=== PATIENT | female | born 1970 | race Caucasian/White ===

== ENCOUNTER 2016-04-20 12:14 | Emergency (ER) | payer OTHER ==
[~2016-04-20] VITALS: Ht 165.1 cm; Wt 101.2 kg
--- NOTE | 2016-04-20 15:15 | Emergency Room Report ---
History of Present Illness Time Seen by [id number] Presenting Problem in Triage Pt arrived:Walked Presenting Problem:PATIENT REPORTS HER BACK STARTED HURTING AFTER PACKING TAPE AT 3M. 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 N Clinical Suspician of Infection? N Mental Status: 1 - Regular (Normal Baseline) Sepsis Risk:Low Sepsis Risk Have you (or family members/close friends) recently traveled outside the [place]? N If Yes, where/when: Have you had exposure to infectious disease within the past month? N TB? Other? 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 She reported packaging boxes, and leaned over where her back "catched" and wouldn't loosen up. She reported having similar LBP 2yrs ago, but at that time was more transverse on both sides. She has taken x2 "advil liquid gels" today with no improvement. She denies fever, chills, n/v/d, numbness/tingling to extremities, or loss of bowel/bladder control. Cardiac Chest Pain Chest pain indicative of cardiac No ALLERGIES Coded Allergies: aspirin (04/20/16) History Medical History General CAD? No Angina: No SD: No Hypertension? No Hyperlipidemia? No CHF? No DVT? No PE? No COPD? No Asthma? No Anemia? No GERD? No Gastric ulcers? No GI Bleed? No Hernia? No Thyroid Problems? No Hypothyroidism? No CVA? No Seizures? No Diabetes? No Renal Insuffiency? No End Stage Renal Disease? No UTI? No Stones? No GB Disease: No Nephritic Syndrome? No Asplenia? No Hepatitis? No Sickle Cell Disease? No Arthritis? No Migraines? No Cataracts? No Glaucoma? No MRSA? No HIV? No TB? No Anxiety? No Depression? Yes Cancer? No More? 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 Musculoskeletal see HPI Skin no symptoms reported, change in color Psychiatric/Neurological see HPI, denies headache, denies numbness, denies paresthesia, denies tingling, denies weakness Physical Exam Vital Signs Vital Signs Date Time Temp Pulse Resp B/P Pulse O2 O2 Flow FiO2 Ox Delivery Rate 04/20 1530 89 16 145/79 97 04/20 1437 98.1 82 16 142/78 97 04/20 1347 72 16 126/74 97 04/20 1321 98.1 79 16 140/74 98 General Appearance normal appearance, WD/WN, mild distress Respiratory Status Yes: trachea midline, chest symmetrical, non tender chest. No: respiratory distress. Lung Sounds bilateral: normal breath sounds, lungs clear. Cardiovascular normal exam, regular rate/rhythm, no peripheral edema, no gallop, no JVD, no murmur, no rub, normal peripheral pulses Peripheral Pulses Pulses normal Yes Gastrointestinal normal bowel sounds, normal exam, non tender, soft, no organomegaly Back normal inspection, decreased range of motion, muscle spasm, right sacral paravertebral muscle tenderness with palpation. Pain and guarding illicited with foward flexion>extension. Pain illicited with upper torso bending to left, and pain felt to her right lower back. Extremities pain to right lower back. 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 No Results/Orders Patient instructed to follow-up with her family physician take the medications prescribed as instructed, at this time. Departure Departure Time of Disposition 1520 Disposition DC Home or Self Care(routine) Clinical Impression Primary Impression: Lumbar strain Qualifiers: Encounter type: initial encounter Qualified Code: S39.012A - Strain of muscle, fascia and tendon of lower back, initial encounter Condition STABLE Patient Instructions DI for Low Back Pain Additional Instructions Please take the medications prescribed as instructed, follow-up with your family physician if no better in 3 days. Work excuse provided for 2 days. Discharge Counseling Counseled pt/family regarding diagnosis, test results, medications/RX, home care, follow up needs Comment Please take the medications prescribed as instructed, follow-up with your family physician if no better in 3 days. Work excuse provided for 2 days. Prescriptions Current Visit Scripts Etodolac 400 MG PO QIDP PRN pain #28 TAB Cyclobenzaprine Hcl (Flexeril) 10 MG PO TID PRN pain #30 TAB ED Critical Care Critical Care No at 2806
--- NOTE | 2016-04-20 15:15 | Emergency Room Report ---
History of Present Illness Time Seen by [id number] Presenting Problem in Triage Pt arrived:Walked Presenting Problem:PATIENT REPORTS HER BACK STARTED HURTING AFTER PACKING TAPE AT 3M. 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 N Clinical Suspician of Infection? N Mental Status: 1 - Regular (Normal Baseline) Sepsis Risk:Low Sepsis Risk Have you (or family members/close friends) recently traveled outside the [place]? N If Yes, where/when: Have you had exposure to infectious disease within the past month? N TB? Other? 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 She reported packaging boxes, and leaned over where her back "catched" and wouldn't loosen up. She reported having similar LBP 2yrs ago, but at that time was more transverse on both sides. She has taken x2 "advil liquid gels" today with no improvement. She denies fever, chills, n/v/d, numbness/tingling to extremities, or loss of bowel/bladder control. Cardiac Chest Pain Chest pain indicative of cardiac No ALLERGIES Coded Allergies: aspirin (04/20/16) History Medical History General CAD? No Angina: No GA: No Hypertension? No Hyperlipidemia? No CHF? No DVT? No PE? No COPD? No Asthma? No Anemia? No GERD? No Gastric ulcers? No GI Bleed? No Hernia? No Thyroid Problems? No Hypothyroidism? No CVA? No Seizures? No Diabetes? No Renal Insuffiency? No End Stage Renal Disease? No UTI? No Stones? No GB Disease: No Nephritic Syndrome? No Asplenia? No Hepatitis? No Sickle Cell Disease? No Arthritis? No Migraines? No Cataracts? No Glaucoma? No MRSA? No HIV? No TB? No Anxiety? No Depression? Yes Cancer? No More? No Immunization Hx Ped.Immunizations UTD Yes DT/Tetanus 5-10 Years Ago Surgical Hx Previous Surgery?Y Tonsils And/Or Adenoids DX [facility] Hx LMP 3 Weeks Ago Social History Smoking Hx Smoker: Current Every Day Smoker Tobacco: Yes Type Cigarettes Packs/day < 1 Pack Are you/the child exposed to second-hand smoke: No Alcohol Alcohol: No Review of Systems All Other Systems Reviewed and Negative Constitutional see HPI Respiratory denies shortness of breath, denies wheezing Cardiovascular denies no symptoms reported Gastrointestinal denies no symptoms reported, see HPI Genitourinary see HPI. Musculoskeletal see HPI Skin no symptoms reported, change in color Psychiatric/Neurological see HPI, denies headache, denies numbness, denies paresthesia, denies tingling, denies weakness Physical Exam Vital Signs Vital Signs Date Time Temp Pulse Resp B/P Pulse O2 O2 Flow FiO2 Ox Delivery Rate 04/20 1530 89 16 145/79 97 04/20 1437 98.1 82 16 142/78 97 04/20 1347 72 16 126/74 97 04/20 1321 98.1 79 16 140/74 98 General Appearance normal appearance, WD/WN, mild distress Respiratory Status Yes: trachea midline, chest symmetrical, non tender chest. No: respiratory distress. Lung Sounds bilateral: normal breath sounds, lungs clear. Cardiovascular normal exam, regular rate/rhythm, no peripheral edema, no gallop, no JVD, no murmur, no rub, normal peripheral pulses Peripheral Pulses Pulses normal Yes Gastrointestinal normal bowel sounds, normal exam, non tender, soft, no organomegaly Back normal inspection, decreased range of motion, muscle spasm, right sacral paravertebral muscle tenderness with palpation. Pain and guarding illicited with foward flexion>extension. Pain illicited with upper torso bending to left, and pain felt to her right lower back. Extremities pain to right lower back. 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 No Results/Orders Patient instructed to follow-up with her family physician take the medications prescribed as instructed, at this time. Departure Departure Time of Disposition 1520 Disposition DC Home or Self Care(routine) Clinical Impression Primary Impression: Lumbar strain Qualifiers: Encounter type: initial encounter Qualified Code: S39.012A - Strain of muscle, fascia and tendon of lower back, initial encounter Condition STABLE Patient Instructions DI for Low Back Pain Additional Instructions Please take the medications prescribed as instructed, follow-up with your family physician if no better in 3 days. Work excuse provided for 2 days. Discharge Counseling Counseled pt/family regarding diagnosis, test results, medications/RX, home care, follow up needs Comment Please take the medications prescribed as instructed, follow-up with your family physician if no better in 3 days. Work excuse provided for 2 days. Prescriptions Current Visit Scripts Etodolac 400 MG PO QIDP PRN pain #28 TAB Cyclobenzaprine Hcl (Flexeril) 10 MG PO TID PRN pain #30 TAB ED Critical Care Critical Care No at 2315
[2016-04-20] MEDS ORDERED: ETODOLAC400 MG PO (15:22)
[2016-04-20] MEDS ORDERED: FLEXERIL10 MG PO (15:23)
[2016-04-20 15:30] VITALS: BP 145/79
== END 2016-04-20 15:30 ==
LOC: ER 12:14
DX: S39.012A Strain of muscle, fascia and tendon of lower back, initial encounter (principal); Z72.0 Tobacco use; X50.3XXA Overexertion from repetitive movements, initial encounter; Y92.63 Factory as the place of occurrence of the external cause; Y99.0 Civilian activity done for income or pay